=== PATIENT | male | born 1955 | race Caucasian/White ===

== ENCOUNTER → 2018-04-13 10:36 | Outpatient (CLI) | payer OTHER, SELFPAY ==
[2018-04-13 12:19] LABS: Hemoglobin A1c 8.1 % (4.2-6.3)
[2018-04-13 12:22] LABS: Anion Gap 6 (5-15); BUN 14 mg/dL (7-18); BUN/Creat Ratio 14.5 RATIO (10-20); Chloride 103 mmol/L (98-107); Cholesterol 212 mg/dL (200); Creatinine, Serum 0.97 mg/dL (0.70-1.30); EST Glomerular Filtration Rate 83 mL/min (>60); Est Glom Filt Rate - Afr Amer 101 mL/min (>60); Glucose 145 mg/dL (74-106); High Density Lipoprotein 44 mg/dL; PSA,Total - Annual Screen 0.34 ng/mL (0.00-4.00); Potassium 4.1 mmol/L (3.5-5.1); Sodium Level 138 mmol/L (136-145); Triglycerides 204 mg/dL; Very Low Density Lipoprotein 41 mg/dL (5-40)
== END ==
PROVIDERS: Family Provider Family Medicine; PCP Family Medicine; Visit Provider Family Medicine
DX: I10 Essential (primary) hypertension (principal); E78.00 Pure hypercholesterolemia, unspecified; E11.9 Type 2 diabetes mellitus without complications; Z12.5 Encounter for screening for malignant neoplasm of prostate
CPT/HCPCS: 36415; 80048; 80061; 83036; 84153; G0103

== ENCOUNTER → 2019-03-08 | Outpatient (CLI) | payer OTHER, SELFPAY ==
[2019-03-08 15:40] LABS: Anion Gap 10 (5-15); BUN 35 mg/dL (7-18); BUN/Creat Ratio 23.8 RATIO (10-20); Calcium,Total 9.3 mg/dL (8.5-10.1); Chloride 103 mmol/L (98-107); Cholesterol 202 mg/dL (200); Creatinine, Serum 1.47 mg/dL (0.70-1.30); EST Glomerular Filtration Rate 51 mL/min (>60); Est Glom Filt Rate - Afr Amer 62 mL/min (>60); Glucose 76 mg/dL (74-106); High Density Lipoprotein 47 mg/dL; Potassium 4.7 mmol/L (3.5-5.1); Sodium Level 140 mmol/L (136-145); Triglycerides 100 mg/dL; Very Low Density Lipoprotein 20 mg/dL (5-40)
[2019-03-08 15:53] LABS: Hemoglobin A1c 7.7 % (4.2-6.3)
== END | disposition home or self-care (01) ==
LOC: MFPLAB 14:04
PROVIDERS: Family Provider Family Medicine; PCP Family Medicine; Referring Provider Family Medicine; Visit Provider Family Medicine
DX: E78.00 Pure hypercholesterolemia, unspecified (principal); E11.9 Type 2 diabetes mellitus without complications; I10 Essential (primary) hypertension
CPT/HCPCS: 36415; 80048; 80061; 83036

== ENCOUNTER → 2020-04-08 | Outpatient (CLI) | payer OTHER, SELFPAY ==
[2020-04-08 17:56] LABS: Hemoglobin A1c 8.7 % (3.8-5.6)
[2020-04-08 17:57] LABS: ALB/GLOB Ratio 1.3 RATIO (0.9-2.4); AST(SGOT) 9 U/L (15-37); Alanine Aminotransfer ALT/SGPT 30 U/L (16-61); Albumin, Serum 4.3 g/dL (3.2-5.0); Alkaline Phosphatase 75 U/L (45-117); Anion Gap 5 (5-15); BUN 27 mg/dL (7-18); BUN/Creat Ratio 19.4 RATIO (10-20); Calcium,Total 9.1 mg/dL (8.5-10.1); Chloride 109 mmol/L (98-107); Cholesterol 218 mg/dL (200); Creatinine, Serum 1.39 mg/dL (0.70-1.30); EST Glomerular Filtration Rate 55 mL/min (>60); Est Glom Filt Rate - Afr Amer 66 mL/min (>60); Globulin 3.2 g/dL (2.2-4.2); Glucose 88 mg/dL (74-106); High Density Lipoprotein 43 mg/dL; Potassium 4.4 mmol/L (3.5-5.1); Protein, Total 7.5 g/dL (6.4-8.2); Sodium Level 141 mmol/L (136-145); Triglycerides 224 mg/dL; Very Low Density Lipoprotein 45 mg/dL (5-40)
[2020-04-08 18:06] LABS: Microalbumin,Random Urine 39.9 mg/L (NO RANGE EST.); Microalbumin:Creatinine Ratio 10.9 mg/g CRE (<30 mg/g CRE)
== END | disposition home or self-care (01) ==
LOC: MTLAB 15:50
PROVIDERS: PCP Family Medicine; Referring Provider Family Medicine; Visit Provider Family Medicine
DX: E11.9 Type 2 diabetes mellitus without complications (principal); I10 Essential (primary) hypertension
CPT/HCPCS: 36415; 80053; 80061; 82043; 82570; 83036

== ENCOUNTER → 2020-05-12 | Outpatient (CLI) | payer OTHER, SELFPAY ==
--- NOTE | 2020-05-12 15:04 | RAD_ITS ---
STUDY: X-RAY - LUMBAR SPINE REASON FOR EXAM: Male, 65 years old. Low back pain with sciatica to the right TECHNIQUE: 5 view(s) of the lumbar spine were obtained including oblique views. COMPARISON: None FINDINGS: There is straightening of the normal lumbar lordosis. There is a dextroscoliosis of the lumbar spine. Minimal retrolisthesis of L4 on L5. There is multilevel endplate spondylosis of the lumbar vertebrae. There is multi-level degenerative disc disease with multi-level disc space narrowing. There is atherosclerotic calcification of the abdominal aorta without a demonstrated aneurysm. RAD/L/S Spine Min 4 Views IMPRESSION: Degenerative changes of the spine, as detailed above. Dextroscoliosis. Loss of the normal lumbar lordosis. Electronically Signed: Clint Loco, at 14:56 EDT , Service support ,
--- NOTE | 2020-05-12 15:08 | RAD_ITS ---
STUDY: X-RAY - SACROILIAC JOINTS REASON FOR EXAM: Male, 65 years old. Low back pain with sciatica to the right TECHNIQUE: 3 view(s) of the sacroiliac joints were obtained. COMPARISON: None. FINDINGS: Normal bilateral sacroiliac joints. Normal visualized sacral ala and sacrum. Normal visualized iliac bones. Normal visualized soft tissue structures. RAD/S-I Jts 3 or More Views IMPRESSION: Normal x-ray examination of the bilateral sacroiliac joints. Electronically Signed: Clint Loco, at 14:56 EDT , Service support ,
== END | disposition home or self-care (01) ==
LOC: MTRAD 15:03
PROVIDERS: PCP Family Medicine; Referring Provider Family Medicine; Visit Provider Family Medicine
DX: M54.40 Lumbago with sciatica, unspecified side (principal)
CPT/HCPCS: 72110; 72202

== ENCOUNTER → 2022-03-29 | Outpatient (CLI) | payer MEDICARE, SELFPAY ==
[2022-03-29 12:47] LABS: ALB/GLOB Ratio 1.2 RATIO (0.9-2.4); AST(SGOT) 12 U/L (15-37); Alanine Aminotransfer ALT/SGPT 24 U/L (16-61); Alkaline Phosphatase 95 U/L (45-117); Anion Gap 10 (5-15); BUN 24 mg/dL (7-18); BUN/Creat Ratio 18.5 RATIO (10-20); Calcium,Total 9.1 mg/dL (8.5-10.1); Chloride 96 mmol/L (98-107); Cholesterol 261 mg/dL (200); EST Glomerular Filtration Rate 59 mL/min (>60); Est Glom Filt Rate - Afr Amer 71 mL/min (>60); Globulin 3.4 g/dL (2.2-4.2); Glucose 303 mg/dL (74-106); High Density Lipoprotein 48 mg/dL; Potassium 3.6 mmol/L (3.5-5.1); Protein, Total 7.4 g/dL (6.4-8.2); Sodium Level 134 mmol/L (136-145); Triglycerides 208 mg/dL; Very Low Density Lipoprotein 42 mg/dL (5-40)
== END | disposition home or self-care (01) ==
PROVIDERS: PCP Family Medicine; Referring Provider Family Medicine; Visit Provider Family Medicine
DX: E11.69 Type 2 diabetes mellitus with other specified complication (principal)
CPT/HCPCS: 36415; 80053; 80061; 82043

== ENCOUNTER → 2022-11-24 | Outpatient (CLI) | payer MEDICARE, SELFPAY ==
[2022-11-24 11:04] LABS: Anion Gap 7 (5-15); BUN 19 mg/dL (7-18); BUN/Creat Ratio 20.5 RATIO (10-20); Calcium,Total 9.7 mg/dL (8.5-10.1); Chloride 102 mmol/L (98-107); Creatinine, Serum 0.93 mg/dL (0.70-1.30); EST Glomerular Filtration Rate 86 mL/min (>60); Est Glom Filt Rate - Afr Amer 104 mL/min (>60); Glucose 200 mg/dL (74-106); Potassium 4.4 mmol/L (3.5-5.1); Sodium Level 138 mmol/L (136-145); Thyroid Stim Hormone (TSH) 2.38 uIU/mL (0.358-3.74)
== END | disposition home or self-care (01) ==
LOC: MFPLAB 09:39
PROVIDERS: PCP Family Medicine; Visit Provider Family Medicine
DX: R00.0 Tachycardia, unspecified (principal)
CPT/HCPCS: 36415; 80048; 84443

== ENCOUNTER 2022-12-24 07:32 | Day surgery (SDC) | payer MEDICARE, SELFPAY ==
[2022-12-24 08:12] VITALS: BP 136/95; PULSE 120; RESP 16; TEMP 36.6; O2SAT 95; BMI 21.8
[2022-12-24] MEDS: Lactated Ringers 1,000 ML 15 ML IV (08:14)
[2022-12-24 08:35] LABS: Bedside Glucose 211 mg/dL (74-106)
--- NOTE | 2022-12-24 08:39 | PCM.HP.BLA ---
History and Physical Date of Admission: 12/24/22 Intake Vital Signs ? 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 Is patient in pain?: No Allergies No Known Allergies Allergy (Unverified 11/29/22 09:18) Medications amoxicillin 875 mg-potassium clavulanate 125 mg tablet 1 tab PO 11/29/22 [History Confirmed 11/29/22] dulaglutide 3 mg/0.5 mL subcutaneous pen injector (Trulicity) 3 mg subcut 11/29/22 [History Confirmed 11/29/22] metformin 500 mg tablet 500 mg PO BID 11/29/22 [History Confirmed 11/29/22] PFSH Medical History?(Updated 11/29/22 @ 09:16 by Obdulia Camp) Bronchitis Weight loss Surgical History?(Updated 11/29/22 @ 09:16 by Obdulia Camp) H/O hand surgery Family History?(Updated 11/29/22 @ 09:17 by Obdulia Camp) Mother DiabetesFather Hypertension Social History?(Updated 11/29/22 @ 09:17 by Obdulia Camp) Smoking Status:? Never smoker alcohol intake:? current HPI HPI HPI: Patient is a 67-year-old male here with unintentional weight loss.? He says he is lost 40 pounds over the last 7 months.? He does admit to eating less because he says that when he eats too much his feet swell and is very uncomfortable.? He denies any abdominal pain or blood in the stool.? He has no family history of colon cancer.? He has never had a colonoscopy. Exam Const General: cooperative Orientation: alert and oriented x3 HENMT Head: normal to inspection Neck Neck: normal visual inspection and full ROM Chest Chest palpation & inspection: normal inspection of the chest Resp Effort & Inspection: normal respiratory effort Auscultation: clear to auscultation bilaterally Cardio Rate: regular rate Rhythm: regular rhythm GI Inspection: non-distended Palpation: soft and nontender Skin General: no rashes or lesions noted Neuro General: patient alert and patient oriented x3 Extrem General: full ROM Psych Appearance: grossly normal Mental Status: mental status grossly normal Assessment and Plan Assessment and Plan (1) Weight loss: ?Status:?Acute ?Plan: Been having unintentional weight loss here for upper and lower endoscopy. I explained endoscopy in detail to the patient.? I explained the risks including but not limited to stroke or heart attack with anesthesia, perforation of the GI tract, bleeding, infection.? I explained that any of these could necessitate further emergency surgery.? The patient understands and all questions were answered sufficiently.? The patient wishes to proceed with procedure. Javon Ortiz MD Pager: [facility] [address] [place] [address], [address] [place] [address] Office: I have examined the patient and the H&P has been reviewed. There are no clinical changes since date of exam.
--- NOTE | 2022-12-24 09:00 | IMM_PTH ---
PATIENT: YOAV BOLDEN LOC: EN U#:[id number] AGE/SX: 67/M ROOM: RE12/24/[address]: Dr. Javon Ortiz MD : 1955 BED: DIS: 12/24/2022 SPEC #: [id number] RECD: 12/24/22 12:32 STATUS: DANIEL RECyrus #: [id number] OSBALDO: 12/24/22 09:[address]: Javon Ortiz DEPT: IMMUNOHISTOCHEMISTRY RECD BY: Citlali Aranda ENTERED: 12/24/22 12:33 SP TYPE: IMMUNO OTHR DR: Roxann Phelan DO Tissues: A - Stomach, NOS Procedures: H Pylori (initial) PHYSICIAN & INSTITUTION [place] [id number] SPECIMEN INFORMATION: Tissue Source: A ? Antral biopsy Clinical Info: Unexplained weight loss Specimen Number: [id number] CPT code: 65885 METHODOLOGY: Deparaffinized sections of prefer/formalin-fixed tissue or PAP/DQ stained slides are incubated with monoclonal/polyclonal antibodies/oligonucleotide probes. Localization is made via biotin free immunoperoxidase method. Appropriate controls are performed and reacted as expected. Results on target cell population are indicated in the following table: RESULTS: ANTIBODY / CLONE RESULT Block A H Pylori (polyclonal) negative These tests were developed and their performance characteristics determined by [facility]. They may not have been cleared or approved by the U.S. Food and Drug Administration. The FDA has determined that such clearance or approval is not necessary. The above immunohistochemical/dualISH markers are ordered and reviewed by the Pathologist. INTERPRETATION: A. Antral biopsy: Negative for Helicobacter pylori organisms. AM:misty 12/27/2022
--- NOTE | 2022-12-24 09:00 | EGD_PTH ---
PATIENT: YOAV BOLDEN LOC: EN U#:[id number] AGE/SX: 67/M ROOM: RE12/24/[address]: Dr. Javon Ortiz MD : 1955 BED: DIS: 12/24/2022 SPEC #: [id number] RECD: 12/24/22 12:19 STATUS: DANIEL DANUTA #: [id number] OSBALDO: 12/24/22 09:[address]: Javon Ortiz DEPT: SURGICAL PATHOLOGY RECD BY: Rosa Carolina ENTERED: 12/24/22 12:19 SP TYPE: EGD BIOPSY OT DR: Roxann Phelan DO Tissues: A - Gastric mucous membrane B - Transverse colon Procedures: Surgery Specimen Level IV HEADER OPERATION: Colonoscopy, EGD ([facility]), biopsy, polypectomy PRE-OP DIAGNOSIS: Unexplained weight loss TISSUE SUBMITTED: A ? Antral biopsy, H. pylori and path, B ? Transverse colon polyp MICROSCOPIC DIAGNOSIS A. Gastric antrum, biopsy: Mild chronic gastritis. See comment. B. Transverse colon polyp, biopsy: Fragments of tubular adenoma. AM:misty 12/27/2022 COMMENT A. The results of immunohistochemistry for Helicobacter pylori will be reported separately ([id number]). MICROSCOPIC DESCRIPTION Slides are reviewed. GROSS DESCRIPTION A - Received in fixative is one container labeled with the patient's name and designated antral biopsy. The specimen consists of one irregular fragment of light mcmahon soft tissue that measures 0.5 x 0.3 x 0.1 cm. The specimen is totally submitted in one cassette. B - Received in fixative is one container labeled with the patient's name and designated polyp transverse colon. The specimen consists of a piece of mcmahon-pink soft tissue measuring 0.4 x 0.3 x 0.2 cm. Also present in the container are multiple fragments of soft tissue mixed with fecal material that in aggregate measure 1.5 x 0.2 x 0.1 cm. The specimen is totally submitted in one cassette. / SJ:misty 12/24/2022 TC:3 CPT: 83960 x2
--- NOTE | 2022-12-24 09:19 | OP.EGD_ITS ---
Patient Name: Jered Hernandez Procedure Date: 12/24/2022 8:47 AM Date of : 1955 Age: 67 Procedure: Upper GI endoscopy Indications: Weight loss Providers: Javon Ortiz MD Referring MD: Javon Ortiz MD Medicines: Monitored Anesthesia Care Patient Profile: This is a 67 year old male. Refer to note in patient chart for documentation of history and physical. Complications: No immediate complications. Estimated blood loss: Minimal. Procedure: Pre-Anesthesia Assessment: - Prior to the procedure, a History and Physical was performed, and patient medications and allergies were reviewed. The patient's tolerance of previous anesthesia was also reviewed. The risks and benefits of the procedure and the sedation options and risks were discussed with the patient. All questions were answered, and informed consent was obtained. Prior Anticoagulants: The patient has taken aspirin, last dose was 5 days prior to procedure. After reviewing the risks and benefits, the patient was deemed in satisfactory condition to undergo the procedure. After obtaining informed consent, the endoscope was passed under direct vision. Throughout the procedure, the patient's blood pressure, pulse, and oxygen saturations were monitored continuously. The gastroscope was introduced through the mouth, and advanced to the third part of duodenum. The upper GI endoscopy was accomplished without difficulty. The patient tolerated the procedure well. Scope In: 8:51:52 AM Scope Out: 8:54:08 AM Total Procedure Duration Time 0 hours 2 minutes 16 seconds Findings: The esophagus was normal. A large amount of food (residue) was found in the gastric body. Biopsies were taken with a cold forceps in the gastric antrum for Helicobacter pylori testing. The examined duodenum was normal. Impression: - Normal esophagus. - A large amount of food (residue) in the stomach. Likely gastroparesis - Normal examined duodenum. - Biopsies were taken with a cold forceps for Helicobacter pylori testing. Recommendation: - Discharge patient to home. - Resume previous diet. - Continue present medications. Procedure Code(s): --- Professional --- 13018, Esophagogastroduodenoscopy, flexible, transoral; with biopsy, single or multiple Diagnosis Code(s): --- Professional --- R63.4, Abnormal weight loss CPT copyright 2017 [employer]. All rights reserved. The codes documented in this report are preliminary and upon newscast director review may be revised to meet current compliance requirements. Javon Ortiz MD 12/24/2022 9:19:03 AM This report has been signed electronically. Number of Addenda: 0 Note Initiated On: 12/24/2022 8:47 AM
[2022-12-24 09:20] VITALS: BP 122/71; BP 136/95; PULSE 100; RESP 14; TEMP 36.6; O2SAT 98
--- NOTE | 2022-12-24 09:20 | OP.CCLET_ITS ---
12/24/2022 Roxann Phelan, Re : Upper GI endoscopy procedure for Jered Hernandez [place] This procedure was performed on Saturday, December 24, 2022. My impressions and recommendations are as follows: Impressions : - Normal esophagus. - A large amount of food (residue) in the stomach. Likely gastroparesis - Normal examined duodenum. - Biopsies were taken with a cold forceps for Helicobacter pylori testing. Recommendations : - Discharge patient to home. - Resume previous diet. - Continue present medications. My findings are described in the full procedure note, which is enclosed. If I can be of further assistance, please feel free to contact me at Doctor phone number(s): , Work: . Sincerely, Javon Ortiz MD 12/24/2022 9:19:03 AM This report has been signed electronically.
--- NOTE | 2022-12-24 09:24 | OP.COLON_ITS ---
Patient Name: Jered Hernandez Procedure Date: 12/24/2022 8:54 AM Date of : 1955 Age: 67 Procedure: Colonoscopy Indications: Weight loss Providers: Javon Ortiz MD Referring MD: Javon Ortiz MD Medicines: Monitored Anesthesia Care Patient Profile: This is a 67 year old male. Refer to note in patient chart for documentation of history and physical. Last Colonoscopy: none. The patient's first colonoscopy is today. Complications: No immediate complications. Procedure: Pre-Anesthesia Assessment: - Prior to the procedure, a History and Physical was performed, and patient medications and allergies were reviewed. The patient's tolerance of previous anesthesia was also reviewed. The risks and benefits of the procedure and the sedation options and risks were discussed with the patient. All questions were answered, and informed consent was obtained. Prior Anticoagulants: The patient has taken aspirin, last dose was 5 days prior to procedure. After reviewing the risks and benefits, the patient was deemed in satisfactory condition to undergo the procedure. After I obtained informed consent, the scope was passed under direct vision. Throughout the procedure, the patient's blood pressure, pulse, and oxygen saturations were monitored continuously. The colonoscope was introduced through the anus and advanced to the cecum, identified by appendiceal orifice and ileocecal valve. The colonoscopy was performed with difficulty due to poor bowel prep. The patient tolerated the procedure well. The quality of the bowel preparation was poor. Scope In: 8:56:41 AM Scope Withdrawal Time 0 hours 8 minutes 30 seconds Scope Out: 9:15:26 AM Total Procedure Duration Time 0 hours 18 minutes 45 seconds Findings: A 5 mm polyp was found in the transverse colon. The polyp was removed with a hot snare. Resection and retrieval were complete. The exam was otherwise without abnormality on direct and retroflexion views. Impression: - Preparation of the colon was poor. - One 5 mm polyp in the transverse colon, removed with a hot snare. Resected and retrieved. - The examination was otherwise normal on direct and retroflexion views. Recommendation: - Discharge patient to home. - Resume previous diet. - Continue present medications. - Await pathology results. - Repeat colonoscopy in 5 years for surveillance. Procedure Code(s): --- Professional --- 15637, Colonoscopy, flexible; with removal of tumor(s), polyp(s), or other lesion(s) by snare technique Diagnosis Code(s): --- Professional --- D12.3, Benign neoplasm of transverse colon (hepatic flexure or splenic flexure) R63.4, Abnormal weight loss CPT copyright 2017 [employer] [employer]. All rights reserved. The codes documented in this report are preliminary and upon hand polisher review may be revised to meet current compliance requirements. Javon Ortiz MD 12/24/2022 9:24:28 AM This report has been signed electronically. Number of Addenda: 0 Note Initiated On: 12/24/2022 8:54 AM
[2022-12-24 09:25] VITALS: BP 136/95; BP 95/61; PULSE 99; RESP 16; O2SAT 97
--- NOTE | 2022-12-24 09:25 | OP.CCLET_ITS ---
12/24/2022 Roxann Phelan, Do Re : Colonoscopy procedure for Jered Hernandez [place] This procedure was performed on Saturday, December 24, 2022. My impressions and recommendations are as follows: Impressions : - Preparation of the colon was poor. - One 5 mm polyp in the transverse colon, removed with a hot snare. Resected and retrieved. - The examination was otherwise normal on direct and retroflexion views. Recommendations : - Discharge patient to home. - Resume previous diet. - Continue present medications. - Await pathology results. - Repeat colonoscopy in 5 years for surveillance. My findings are described in the full procedure note, which is enclosed. If I can be of further assistance, please feel free to contact me at Doctor phone number(s): , Work: . Sincerely, Javon Ortiz MD 12/24/2022 9:24:28 AM This report has been signed electronically.
[2022-12-24 09:30] VITALS: BP 136/95; BP 93/62; PULSE 101; RESP 16; O2SAT 95
[2022-12-24 09:35] VITALS: BP 101/72; BP 136/95; PULSE 101; RESP 16; TEMP 36.3; O2SAT 94
[2022-12-24 10:02] VITALS: BP 136/95
== END 2022-12-24 10:24 | disposition home or self-care (01) ==
LOC: EN 07:35 → AC 07:35
PROVIDERS: PCP Family Medicine; Referring Provider Family Medicine; Visit Provider Surgery
PROC: 0DJD8ZZ Inspection of Lower Intestinal Tract, Via Natural or Artificial Opening Endoscopic (ICD-10-PCS; CPT 45378; principal; 2022-12-24 08:55)
DX: D12.3 Benign neoplasm of transverse colon (principal); E11.9 Type 2 diabetes mellitus without complications; K29.50 Unspecified chronic gastritis without bleeding; I10 Essential (primary) hypertension; Z79.84 Long term (current) use of oral hypoglycemic drugs
CPT/HCPCS: 43239; 45385; 82962; 88305; 88342; J7120; J2405

== ENCOUNTER 2023-04-01 13:41 | Outpatient (CLI) | payer MEDICARE, SELFPAY ==
--- NOTE | 2023-04-01 13:44 | RAD_ITS ---
STUDY: X-RAY - LUMBAR SPINE REASON FOR EXAM: Male, 68 years old. LUMBAR STRAIN TECHNIQUE: 5 view(s) of the lumbar spine were obtained including oblique views. COMPARISON: None FINDINGS: Normal lumbar lordosis. There is a dextroscoliosis of the lumbar spine. There is a normal alignment of the vertebrae. There is multilevel endplate spondylosis of the lumbar vertebrae. There is multi-level degenerative disc disease with multi-level disc space narrowing. There is no demonstrated spondylolysis of the pars interarticulares. The soft tissue structures are unremarkable. RAD/L/S Spine Min 4 Views IMPRESSION: Degenerative changes of the spine, as detailed above. Dextroscoliosis. Electronically Signed: Clint Loco MD at 14:37 EDT ,
--- NOTE | 2023-04-01 13:45 | RAD_ITS ---
STUDY: X-RAY - PELVIS REASON FOR EXAM: Male, 68 years old. LUMBAR STRAIN TECHNIQUE: One view of the pelvis was obtained. COMPARISON: None. FINDINGS: Moderate amount of fecal material is seen in the colon. Normal visualized soft tissue structures. There is narrowing with cortical sclerosis and osteophyte formation of the sacroiliac joint consistent with degenerative osteoarthritic changes. Normal visualized bilateral superior and inferior pubic rami. Normal pubic symphysis. Normal ischial tuberosities. Normal visualized right femoral head. Normal right acetabulum. Normal right hip joint. Normal visualized left femoral head. Normal left acetabulum. Normal left hip joint. RAD/Pelvis 1 or 2 Views IMPRESSION: No acute abnormality is seen. Electronically Signed: Clint Loco MD at 14:50 EDT ,
[2023-04-01 16:17] LABS: Absolute Lymphocyte Count 3.46 X10^3/uL (0.83-4.51); Absolute Neutrophil Count 4.9 X10^3/uL (2.0-7.7); Basophil# 0.05 X10^3/uL; Basophil% 0.5 % (0-1); Eosinophil# 0.08 X10^3/uL; Eosinophils% 0.9 % (0-5); Hematocrit 45.6 % (40-54); Hemoglobin 15.9 g/dL (13.0-16.5); Lymphocyte # 3.46 X10^3/ul (0.83-4.51); Lymphocyte % 37.2 % (19-41); Mean Corp Hgb Conc 34.9 g/dL (32-36); Mean Corpuscular Hgb 29.8 pg (27.0-32.0); Mean Corpuscular Volume 85.4 fL (80-94); Mean Platelet Vol. 10.6 fl (6.2-12.0); Monocyte# 0.75 X10^3/uL; Monocyte% 8.1 % (0-10); NRBC Flagged by Analyzer 0 % (0-5); Neutrophil # 4.93 X10^3/uL (2.7-7.7); Neutrophil % 53.1 % (47-70); Platelet Count 363 K/mm3 (150-450); RBC Distribution Width CV 12.9 % (11.6-14.6); RBC Distribution Width SD 39.7 fl (35.1-43.9); Red Blood Count 5.34 M/mm3 (4.6-6.2); White Blood Count 9.3 K/mm3 (4.4-11.0)
[2023-04-01 16:41] LABS: PSA,Total - Annual Screen 0.42 ng/mL (0.00-4.00); Thyroid Stim Hormone (TSH) 1.79 uIU/mL (0.358-3.74)
[2023-04-01 16:46] LABS: Erythrocyte Sedimentation Rate 2 mm/hr (0-20)
== END 2023-04-01 23:59 | disposition home or self-care (01) ==
LOC: MTLAB 13:43
PROVIDERS: PCP Family Medicine; Referring Provider Family Medicine; Visit Provider Family Medicine
DX: R63.4 Abnormal weight loss (principal)
CPT/HCPCS: 36415; 72110; 72170; 84153; 84443; 85025; 85652; G0103

== ENCOUNTER → 2023-05-24 | Outpatient (CLI) | payer MEDICARE, SELFPAY ==
[2023-05-24 17:54] LABS: Cholesterol 123 mg/dL (200); High Density Lipoprotein 51 mg/dL; Triglycerides 120 mg/dL; Very Low Density Lipoprotein 24 mg/dL (5-40)
[2023-05-24 17:55] LABS: Hemoglobin A1c 9.5 % (3.8-5.6)
== END | disposition home or self-care (01) ==
LOC: MTLAB 14:50
PROVIDERS: PCP Family Medicine; Referring Provider Family Medicine; Visit Provider Family Medicine
DX: E11.9 Type 2 diabetes mellitus without complications (principal)
CPT/HCPCS: 36415; 80061; 83036